=== PATIENT | female | born 1985 | race Caucasian/White ===

== ENCOUNTER 2019-02-27 11:00 | Outpatient (CLI) | payer OTHER ==
--- NOTE | 2019-02-27 11:39 | RAD ---
Exam: Scoliosis study HISTORY: Acute low back pain with chronic back pain FINDINGS: There is an approximately 12 degree dextroscoliosis of the lower thoracic vertebral column. Impression 8 degree levoscoliosis of the upper mid thoracic vertebral column. No evidence for other s ignificant acute osseous process. IMPRESSION: Mild scoliotic changes as above.
== END 2019-02-27 11:01 | disposition home or self-care (01) ==
LOC: BICRAD 11:00
PROVIDERS: ATTEND Family Medicine
DX: M54.5 Low back pain (principal); M41.9 Scoliosis, unspecified
CPT/HCPCS: 36415; 72081; 83520; 85025; 86038; 86140; 86200; 86225

== ENCOUNTER 2023-06-05 04:03 | Emergency (ER) | payer OTHER ==
[2023-06-05] MEDS ORDERED: Famotidine 20 MG TAB ONE (04:27)
[2023-06-05] MEDS ORDERED: Dexamethasone 4 MG TAB ONE (04:27)
== END 2023-06-05 05:04 | disposition home or self-care (01) ==
LOC: ERS 04:03
DX: T78.40XA Allergy, unspecified, initial encounter (principal)
CPT/HCPCS: 99283; J8540

== ENCOUNTER 2023-08-23 08:59 | Outpatient (CLI) | payer OTHER | END 2023-08-23 09:00 | disposition home or self-care (01) | LOC: SCSMRI 08:59 | PROVIDERS: ATTEND Specialist | DX: M51.17 Intervertebral disc disorders with radiculopathy, lumbosacral region (principal); M48.07 Spinal stenosis, lumbosacral region | CPT/HCPCS: 72148 ==